=== PATIENT | female | born 1955 | race Caucasian/White ===

== ENCOUNTER → 2017-08-01 | Outpatient (CLI) | payer OTHER ==
--- NOTE | 2017-08-01 14:16 | Diagnostic Imaging Report ---
PROCEDURE:L-SPINE COMPLETE COMPARISON:None. INDICATIONS:back pain FINDINGS: There are 5 lumbar-type vertebral bodies. There is trace dextroscoliosis with the apex at L2. No rotational component. Alignment is maintained on lateral image. Vertebral body heights are symmetric. No significant disc space narrowing or endplate osteophytic lipping. The facets and spinous processes are normally aligned. No pars defects. Sacroiliac joints are normal. Bowel gas pattern is unremarkable. Cholecystectomy clips are present. CONCLUSION: Trace dextroscoliosis of the upper lumbar spine. No significant degenerative changes. Dictated by: Yanet Elliott M.D. on 08/01/2017 at 14:17 Electronically approved by: Yanet Elliott M.D. on 08/01/2017 at 14:17
== END ==
LOC: RAD 12:41
PROVIDERS: ATTEND Internal Medicine
DX: M54.5 Low back pain (principal); M54.16 Radiculopathy, lumbar region
CPT/HCPCS: 72110

== ENCOUNTER → 2018-07-18 | Outpatient (CLI) | payer OTHER | LOC: MAMMO 09:36 | PROVIDERS: ATTEND Obstetrics & Gynecology | DX: Z12.31 Encounter for screening mammogram for malignant neoplasm of breast (principal) | CPT/HCPCS: 77067 ==

== ENCOUNTER 2018-12-03 17:25 | Emergency (ER) | payer OTHER ==
[~2018-12-03] VITALS: Ht 170.2 cm; Wt 90.7 kg
--- OUTSIDE RECORDS SUMMARY | 2018-12-03 17:27 | XMS REPORT ---
Author [facility] Address Unknown Phone Unavailable Care Team Providers Care Saw Repairer Name Role Phone LINNETTE SAMSON Unavailable Unavailable SAMANTA JACOBS Unavailable Unavailable Payers Payer Name Policy Type Policy Number Effective Date Expiration Date Problems This patient has no known problems. Allergies, Adverse Reactions, Alerts Allergy Name Allergy Type Status Severity Reaction(s) Onset Date Inactive Date Treating Clinician Comments Sulfa (Sulfonamide Antibiotics) DA Active SV 2018-02-05 00:00:00 Sulfa (Sulfonamide Antibiotics) DA Active SV 2018-01-28 00:00:00 No Known Contrast Allergies DA Active U 2007-07-15 00:00:00 No Known Drug Allergies DA Active U 2007-07-15 00:00:00 No Known Food Allergies DA Active U 2007-07-15 00:00:00 No Known Other Allergies DA Active U 2007-07-15 00:00:00 Medications This patient has no known medications. Results Test Description Test Time Test Comments Text Results Atomic Results Result Comments MAMMOGRAPHY DIGITAL SCR BILAT 2018-07-18 10:18:00 [facility] [address] [address] Patient Name: MAR SHERMAN MR #: [id number] : 1955 Age/Sex: 63/F Req #: [id number] Adm Physician: Ordered by: LINNETTE SAMSON MD Report #: [id number] Location: MAMMO Room/Bed: Procedure: [id number] MG/MAMMOGRAPHY DIGITAL SCR BILAT Exam Date: 07/18/18 Exam Time: 0956 REPORT STATUS: Signed #[id number] - [id number] #BILATERAL DIGITAL SCREENING MAMMOGRAM WITH CAD: 07/18/2018 CLINICAL: Routine screening. Comparison is made to exams dated: 05/22/2012 mammogram, 12/29/2010 mammogram - [facility] and 02/15/2016 mammogram - [facility]. Current study contains 4 films. The tissue of both breasts is extremely dense, which lowers the sensitivity of mammography. Current study was also evaluated with a Computer Aided Detection (CAD) system. There are benign calcifications in both breasts. There is a scar marker on the left breast and a mole marker on the right. No significant masses, calcifications, or other findings are seen in either breast. There has been no significant interval change. IMPRESSION: BENIGN There is no mammographic evidence of malignancy. A 1 year screening mammogram is recommended. The patient will be notified by letter of the results. Yvette Moulton Jr., D.O. cw/:08/01/2018 15:05:18 Account Auditor: Renata DUNCAN(R)(M), [facility] letter sent: Compared to Prior B9 Mammogram BI-RADS: 2 Benign Dictated By: YVETTE MOULTON DO [id number] Transcribed By: JESSEE on 08/01/18 1507 COPY TO: LINNETTE SAMSON MD SP LUMBAR, COMPLETE MIN [address]VW [address] [address] Patient Name: MAR SHERMAN MR #: [id number] : 1955 Age/Sex: 62/F [facility] #: [id number] [facility] Physician: Ordered by: SAMANTA JACOBS MD Report #: [id number] Location: [facility] Room/Bed: Procedure: [id number] DX/SP LUMBAR, COMPLETE MIN 4VW Exam Date: 08/01/17 Exam Time: 1300 REPORT STATUS: Signed PROCEDURE: L-SPINE COMPLETE COMPARISON: None. INDICATIONS: back pain FINDINGS: There are 5 lumbar-type vertebral bodies. There is trace dextroscoliosis with the apex at L2. No rotational component. Alignment is maintained on lateral image. Vertebral body heights are symmetric. No significant disc space narrowing or endplate osteophytic lipping. The facets and spinous processes are normally aligned. No pars defects. Sacroiliac joints are normal. Bowel gas pattern is unremarkable. Cholecystectomy clips are present. CONCLUSION: Trace dextroscoliosis of the upper lumbar spine. No significant degenerative changes. Dictated by: Trish Elliott M.D. on 08/01/2017 at 14:17 Electronically approved by: Trish Elliott M.D. on 08/01/2017 at 14:17 Dictated By: TRISH ELLIOTT MD [id number] Transcribed By: JENELLE on 08/01/177 COPY TO: SAMANTA JACOBS MD
[2018-12-03 18:20] LABS: BASOPHILS # (AUTO) 0.1 (0.0-0.1); BASOPHILS % 0.7 % (0.0-1.0); EOSINOPHILS # (AUTO) 0.1 (0.0-0.4); EOSINOPHILS % 0.6 % (0.0-6.0); HEMATOCRIT 43.7 % (34.2-44.1); HEMOGLOBIN 14.9 g/dL (12.0-16.0); LYMPHOCYTES # (AUTO) 2.8 (1.0-3.2); LYMPHOCYTES % 31.2 % (18.0-39.1); MEAN CORPUSCULAR HGB CONC 34.1 g/dL (31-35); MEAN CORPUSCULAR VOLUME 88.1 fL (81-99); MONOCYTES # (AUTO) 0.7 (0.2-0.8); NEUTROPHILS # (AUTO) 5.3 (2.1-6.9); NEUTROPHILS % 58.9 % (38.7-80.0); PLATELET COUNT 204 x10e3/uL (140-360); RED BLOOD COUNT 4.96 x10e6/uL (3.6-5.1); RED CELL DISTRIBUTION WIDTH 13.8 % (11.7-14.4)
[2018-12-03 18:29] LABS: INR 0.75; PARTIAL THROMBOPLASTIN TIME 26.4 seconds (23.8-35.5)
[2018-12-03 18:40] LABS: ALANINE AMINOTRANSFERASE 34 IU/L (0-55); ALBUMIN 4.1 g/dL (3.5-5.0); ALBUMIN/GLOBULIN RATIO 1.2 (0.8-2.0); ALKALINE PHOSPHATASE 61 IU/L (40-150); ANION GAP 19.3 mmol/L (8-16); BLOOD UREA NITROGEN 14 mg/dL (7-26); BUN/CREATININE RATIO 17 (6-25); CALCIUM 10.7 mg/dL (8.4-10.2); CARBON DIOXIDE 20 mmol/L (22-29); CHLORIDE 103 mmol/L (98-107); CREATINE KINASE 82 IU/L (29-168); CREATININE, SERUM 0.83 mg/dL (0.57-1.11); EST GLOMERULAR FILTRATION RATE > 60 ML/MIN (60-); GLUCOSE 88 mg/dL (74-118); POTASSIUM 3.3 mmol/L (3.5-5.1); SODIUM 139 mmol/L (136-145)
--- NOTE | 2018-12-03 19:08 | Diagnostic Imaging Report ---
EXAMINATION: CHEST SINGLE (PORTABLE) INDICATION: Shortness of breath ^SOB ^[id number] ^1852 COMPARISON: None FINDINGS: TUBES and LINES: None. LUNGS: Lungs are well inflated. Perihilar peribronchial hazy opacity could be due to bronchitis. There is no evidence of pneumonia or pulmonary edema. PLEURA: No pleural effusion or pneumothorax. HEART AND MEDIASTINUM: The cardiomediastinal silhouette is unremarkable. BONES AND SOFT TISSUES: No acute osseous lesion. Soft tissues are unremarkable. UPPER ABDOMEN: No free air under the diaphragm. IMPRESSION: Perihilar peribronchial hazy opacity could be due to bronchitis Signed by: Dr. Glenroy Lubin M.D. on 12/03/2018 7:05 PM
[2018-12-03 19:53] LABS: BILIRUBIN,URINE NEGATIVE (NEGATIVE); CLARITY,URINE SL CLOUDY (CLEAR); COLOR,URINE YELLOW (YELLOW); KETONES,URINE NEGATIVE (NEGATIVE); LEUKOCYTE ESTERASE ,URINE NEGATIVE (NEGATIVE); NITRITE,URINE NEGATIVE (NEGATIVE); PROTEIN,URINE DIPSTICK NEGATIVE (NEGATIVE); URINE UROBILINOGEN 0.2 mg/dL (0.2 - 1)
[2018-12-03 20:09] LABS: BACTERIA,URINE RARE /HPF; EPITHELIAL CELLS,URINE FEW /LPF
--- NOTE | 2018-12-03 20:49 | Diagnostic Imaging Report ---
EXAM: CT Chest WITH contrast INDICATION: Shortness of breath. Dyspnea. ^dyspnea ^[id number] ^2024 COMPARISON: Chest radiograph 12/03/2018 TECHNIQUE: Chest was scanned utilizing a multidetector helical scanner from the lung apex through the level of the adrenal glands without administration of IV contrast. Coronal and sagittal reformations were obtained. Routine protocol was performed. IV CONTRAST: 100 mL of Isovue-370 COMPLICATIONS: None RADIATION DOSE: Total DLP: 606.29 mGy*cm Estimated effective dose: (DLP x 0.014 x size factor) mSv CTDIvol has been reviewed. It is below the limits set by the Radiation Protocol Committee (RPC). Dose modulation, iterative reconstruction, and/or weight based adjustment of the mA/kV was utilized to reduce the radiation dose to as low as reasonably achievable. FINDINGS: LINES/ TUBES: None. LUNGS AND AIRWAYS: Scattered groundglass density in the lungs could be due to bronchitis and/or a combination of scarring/atelectasis most pronounced in the lower lobes. Nonspecific 4 mm nodule in the posterior left lower lobe. No focal consolidation. Airways are normal. PLEURA: The pleural spaces are clear. HEART AND MEDIASTINUM: The thyroid gland is normal. No mediastinal, hilar or axillary lymphadenopathy. The heart is normal in size. There is no pericardial effusion. UPPER ABDOMEN: Unremarkable. BONES: The visualized bony thorax is within normal limits. SOFT TISSUES: Unremarkable. IMPRESSION: Scattered groundglass density in the lungs could be due to bronchitis and/or a combination of scarring/atelectasis most pronounced in the lower lobes. Nonspecific 4 mm nodule in the posterior left lower lobe. No focal consolidation Signed by: Dr. Glenroy Lubin M.D. on 12/03/2018 8:46 PM
[2018-12-03] MEDS ORDERED: LORAZEPAM INJ 2 MG/ML VIAL IV NR (21:15)
[2018-12-03 21:16] LABS: ABG PCO2 18 mmHg (41-51); ABG PO2 76 mmHg (80-105)
[2018-12-03 21:17] LABS: ABG HCO3 18 mmol/L (23-28)
[2018-12-03 21:57] VITALS: BP 167/78
[2018-12-03] MEDS ORDERED: SODIUM CHLORIDE 0.9% 50ML 50 ML ONE (22:02)
[2018-12-03] MEDS ORDERED: IOPAMIDOL 370 MG/ML 200 ML INFUS..BTL INJ ONE (22:03)
== END 2018-12-03 22:04 | disposition home or self-care (01) ==
LOC: ER 17:25
DX: J20.8 Acute bronchitis due to other specified organisms (principal)
CPT/HCPCS: 36415; 36600; 71045; 71260; 80053; 81001; 82550; 82553; 82805; 83880; 84484; 85025; 85379; 85610; 85730; 87086; 93005; 99284; J2060; Q9967

== ENCOUNTER → 2019-10-20 | Outpatient (CLI) | payer OTHER | LOC: MAMMO 10:09 | PROVIDERS: ATTEND Internal Medicine | DX: Z12.31 Encounter for screening mammogram for malignant neoplasm of breast (principal) | CPT/HCPCS: 77067 ==

== ENCOUNTER → 2020-11-17 | Day surgery (SDC) | payer OTHER ==
[2020-11-15 12:08] LABS: HEMATOCRIT 45.9 % (34.2-44.1); HEMOGLOBIN 14.9 g/dL (12.0-16.0)
[2020-11-15 12:24] LABS: ANION GAP 13.6 mmol/L (8-16); CALCIUM 9.5 mg/dL (8.4-10.2); CREATININE, SERUM 0.81 mg/dL (0.57-1.11); POTASSIUM 4.6 mmol/L (3.5-5.1)
[~2020-11-17] MED LIST: ALLER-TEC10 MG PO; BALANCED SALT SOLN (OPTH) 15 ML BTL IO ONE; BUPIVACAINE HC 0.75% PF 10ML VIAL INJ ONE; CYCLOPENTOLATE HCL 2% OPTH SOLN 2 ML BTL OP ONE; DEXTROAMP-AMPHE20 MG PO; DICLOFENAC SODI75 MG PO; EPINEPHRINE HCL 1:1000 1ML 1 MG/ML AMP ONE; GATIFLOXACIN(OPTH) 5 ML LIQD ONE; LIDOCAINE 2% /EPINEPHRINE 20 ML SDV INJ ONE; LIDOCAINE HCL-PF 4% 40 MG/1 ML 5ML AMP ONE; MIDAZOLAM HCL 2 MG/2 ML VIAL ONE; PHENYLEPHRINE HCL 2 ML DROPS ONE; PILOCARPINE HCL(OPTH) 15 ML LIQD ONE; POVIDONE IODINE 0.05% 0.05 % ML PO ONE; POVIDONE IODINE 5% (OPTH) 30 ML BTL ONE; PRAVASTATIN SOD40 MG PO; PROPOFOL IV EMULSION 10 MG/ML 20 ML VIAL ONE; SERTRALINE HCL50 MG PO; TOBRAMYCIN/DEXAMETHASONE(OPTH) 3.5 GM TUBE ONE; ZOLPIDEM TARTRAT5 MG PO
[2020-11-17 09:30] VITALS: BP 152/89
== END | disposition home or self-care (01) ==
LOC: OR 06:07
PROVIDERS: ATTEND Ophthalmology
DX: H25.12 Age-related nuclear cataract, left eye (principal); G47.33 Obstructive sleep apnea (adult) (pediatric); M19.90 Unspecified osteoarthritis, unspecified site; E78.5 Hyperlipidemia, unspecified; E66.9 Obesity, unspecified; F32.9 Major depressive disorder, single episode, unspecified; Z01.810 Encounter for preprocedural cardiovascular examination; Z01.812 Encounter for preprocedural laboratory examination; Z20.822 Contact with and (suspected) exposure to COVID-19
CPT/HCPCS: 36415; 66984; 80048; 85014; 85018; 93005; J2001; J2250; J2704; U0002; V2788; J0171

== ENCOUNTER → 2022-08-07 | Outpatient (CLI) | payer MEDICARE, OTHER ==
[~2022-08-07] MED LIST changes: -BALANCED SALT SOLN (OPTH) 15 ML BTL IO ONE; -BUPIVACAINE HC 0.75% PF 10ML VIAL INJ ONE; -CYCLOPENTOLATE HCL 2% OPTH SOLN 2 ML BTL OP ONE; -EPINEPHRINE HCL 1:1000 1ML 1 MG/ML AMP ONE; -GATIFLOXACIN(OPTH) 5 ML LIQD ONE; -LIDOCAINE 2% /EPINEPHRINE 20 ML SDV INJ ONE; -LIDOCAINE HCL-PF 4% 40 MG/1 ML 5ML AMP ONE; -MIDAZOLAM HCL 2 MG/2 ML VIAL ONE; -PHENYLEPHRINE HCL 2 ML DROPS ONE; -PILOCARPINE HCL(OPTH) 15 ML LIQD ONE; -POVIDONE IODINE 0.05% 0.05 % ML PO ONE; -POVIDONE IODINE 5% (OPTH) 30 ML BTL ONE; -PROPOFOL IV EMULSION 10 MG/ML 20 ML VIAL ONE; +REGADENOSON 0.4 MG/5 ML SYR IV ONE; -TOBRAMYCIN/DEXAMETHASONE(OPTH) 3.5 GM TUBE ONE
== END ==
LOC: NM 08:06
PROVIDERS: ATTEND Internal Medicine
DX: R07.9 Chest pain, unspecified (principal)
CPT/HCPCS: 78452; 93017; A9502; J2785

== ENCOUNTER 2024-06-26 20:32 | Emergency (ER) | payer MEDICARE, OTHER ==
[~2024-06-26] VITALS: Ht 170.2 cm; Wt 90.7 kg
[~2024-06-26 20:32] MED LIST changes: -REGADENOSON 0.4 MG/5 ML SYR IV ONE
[2024-06-26] MEDS: ACETAMINOPHEN 325 MG TAB PO ONE (22:31)
[2024-06-26] MEDS ORDERED: ULTRAM 50MG50 MG PO (22:40)
[2024-06-26] MEDS ORDERED: ONDANSETRON ODT4 MG SL (22:40)
[2024-06-26] MEDS: TRAMADOL HCL 50 MG TAB PO ONE (22:43)
[2024-06-26] MEDS: TETANUS/DIPHTHERIA TOX ADULT 0.5 ML SYR IM ONE (23:08)
[2024-06-26 23:10] VITALS: PULSE 64; RESP 18; TEMP 98.1; O2SAT 97
== END 2024-06-26 23:17 | disposition home or self-care (01) ==
LOC: ER 20:38
DX: S00.83XA Contusion of other part of head, initial encounter (principal); S00.31XA Abrasion of nose, initial encounter; R51.9 Headache, unspecified; M54.2 Cervicalgia; W01.0XXA Fall on same level from slipping, tripping and stumbling without subsequent striking against object, initial encounter; Y93.01 Activity, walking, marching and hiking; Y92.89 Other specified places as the place of occurrence of the external cause; E78.5 Hyperlipidemia, unspecified; F41.9 Anxiety disorder, unspecified; F32.A Depression, unspecified; Z79.82 Long term (current) use of aspirin
CPT/HCPCS: 70450; 70486; 72125; 90471; 90714; 99283